=== PATIENT | female | born 1960 | race Caucasian/White ===

== ENCOUNTER → 2017-01-13 | Outpatient (CLI) | payer BC ==
--- NOTE | 2017-01-13 14:26 | Diagnostic Imaging Report ---
Transabdominal and transvaginal pelvic ultrasound. INDICATION: History of pelvic pain. The patient had the uterus and one of the ovaries removed in the past. FINDINGS: The urinary bladder appears unremarkable. The vaginal cuff region appears unremarkable. Bowel loops are seen in the pelvis which could obscure the remaining ovary which is potentially atrophic at the patient's age. No definite adnexal masses seen. IMPRESSION: No definite abnormality. Dictated by: Dictated on workstation # [id number]
== END ==
LOC: RAD 10:07
PROVIDERS: ATTEND Nurse Practitioner
DX: R10.2 Pelvic and perineal pain (principal); Z90.710 Acquired absence of both cervix and uterus; Z90.721 Acquired absence of ovaries, unilateral
CPT/HCPCS: 76830; 76856; 77067

== ENCOUNTER → 2018-10-05 | Outpatient (CLI) | payer BC ==
--- NOTE | 2018-10-06 12:25 | Diagnostic Imaging Report ---
INDICATION: Screening. EXAMINATION: Digital mammogram bilateral screening with 3-D tomosynthesis. The current study was also evaluated with a Computer Aided Detection (CAD) system. This study was compared to the prior exams of 01/13/2017 and 04/02/2013. At this time, there are no current complaints. FINDINGS: The fibroglandular tissue in both breasts is heterogeneously dense. This does limit the sensitivity of this exam. Overall, there does not appear to have been any significant change when compared to the prior study. No primary or secondary sign of malignancy is noted. IMPRESSION: There is no radiographic evidence for malignancy. ACR BI-RADS Category 1: Negative. Result letter will be mailed to the patient. Note: At least 10% of breast cancer is not imaged by mammography. Dictated by: Dictated on workstation # [id number]
== END ==
LOC: RAD 10:51
PROVIDERS: ATTEND Nurse Practitioner
DX: Z12.31 Encounter for screening mammogram for malignant neoplasm of breast (principal)
CPT/HCPCS: 77067

== ENCOUNTER 2019-07-27 09:43 | Outpatient (RCR) | payer BC | END 2019-10-25 | disposition home or self-care (01) | LOC: CARD 09:43 | PROVIDERS: ATTEND Family Medicine | DX: I49.9 Cardiac arrhythmia, unspecified (principal) | CPT/HCPCS: 93225; 93226 ==

== ENCOUNTER → 2019-11-24 | Outpatient (CLI) | payer BC ==
--- NOTE | 2019-11-24 09:56 | Diagnostic Imaging Report ---
INDICATION: Left breast lump. COMPARISON: Correlation is made with the diagnostic mammogram from earlier this same day. TECHNIQUE/FINDINGS: Sonographic interrogation of the area of lump in the left breast was performed. This corresponds to the 2 o'clock location approximately 10 cm from the nipple. No sonographic abnormality is seen. No solid or cystic mass is detected. IMPRESSION: No sonographic abnormality is detected. Continued close clinical and self breast exams are recommended to confirm stability of the palpable abnormality. ACR BI-RADS Category 1: Negative. Dictated by: Dictated on workstation # [id number]
--- NOTE | 2019-11-24 10:32 | Diagnostic Imaging Report ---
INDICATION: Left breast lump. COMPARISON: 10/05/2018 and 01/13/2017. TECHNIQUE: 2D and 3D bilateral diagnostic mammography was performed with CAD. FINDINGS: Scattered fibroglandular densities are identified bilaterally. A BB marker was placed at the area of palpable abnormality in the upper outer left breast. No mass or malignant appearing microcalcifications are seen. The axillae are unremarkable. IMPRESSION: No mammographic features suspicious for malignancy are identified. Even so, sonographic interrogation of the area of palpable abnormality in the upper-outer left breast is recommended and will be performed today. ACR BI-RADS Category 0: Incomplete. (Needs additional imaging evaluation). Result letter will be mailed to the patient. Note: At least 10% of breast cancer is not imaged by mammography. Dictated by: Dictated on workstation # [id number]
== END ==
LOC: RAD 08:55
PROVIDERS: ATTEND Surgery
DX: N63.21 Unspecified lump in the left breast, upper outer quadrant (principal)
CPT/HCPCS: 76642; 77062; 77066

== ENCOUNTER 2020-09-08 05:33 | Outpatient (CLI) | payer BC ==
[~2020-09-08] VITALS: Ht 162.6 cm; Wt 56.8 kg
[2020-09-08] MEDS ORDERED: MULT-1021 PO (13:11)
[2020-09-08] MEDS ORDERED: ESTR10TA9 VG (13:11)
[2020-09-08] MEDS ORDERED: LEVO50CA4 PO (13:11)
== END 2020-09-08 14:52 | disposition home or self-care (01) ==
LOC: PREOP 05:33 → EDSTATUS 10:00 → PREOP 14:52
PROVIDERS: ATTEND Internal Medicine
DX: Z01.818 Encounter for other preprocedural examination (principal)

== ENCOUNTER → 2020-09-15 | Day surgery (SDC) | payer BC ==
--- NOTE | 2020-09-01 18:01 | HISTORY AND PHYSICAL ---
DATE OF SERVICE: COLONOSCOPY HISTORY AND PHYSICAL HISTORY OF PRESENT ILLNESS: The patient is a 60-year-old white female referred by Dr. Magana for screening colonoscopy. She reports one other colonoscopy a little over 10 years ago that was unremarkable per her report. She is not aware of any family history for colon cancer. She denies any abdominal pain, change in bowel habits, bright red blood per rectum or melena. She also denies change in weight. She reports her energy level has been good. PAST MEDICAL HISTORY: Significant for frequent UTIs with reported interstitial cystitis, she tends to take cefuroxime for as needed. 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 She started this during COVID infection for symptomatic day was 06/30/2020. She reports after two and half weeks she was back to baseline with no complications reported. She is continued on baby aspirin daily. PAST SURGICAL HISTORY: She had total abdominal hysterectomy and bilateral salpingo-oophorectomy for symptomatic fibroids in the past and distant past history of tonsillectomy and adenoidectomy. FAMILY HISTORY: Mother of a stroke and had diabetes at the age of 79. Father is still living at the age of 90 with history of coronary artery disease. 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 REVIEW OF SYSTEMS: CONSTITUTIONAL: The patient denies night sweats, chills, fever, or change in weight. PULMONARY: She denies cough, shortness of breath or dyspnea on exertion. CARDIOVASCULAR: She denies chest pain, orthopnea, PND, pedal edema, syncope or presyncope. GASTROINTESTINAL: As noted in the HPI. PHYSICAL EXAMINATION: GENERAL: Reveals a pleasant white female, normal weight, in no acute distress. VITAL SIGNS: Blood pressure 110/60. CHEST: Clear. CARDIOVASCULAR: Revealed a regular rate and rhythm without S3 or S4. ABDOMEN: Soft, supple without mass, organomegaly or tenderness. EXTREMITIES: Reveal no cyanosis, clubbing or edema. CARDIOVASCULAR: The patient set up for screening colonoscopy as I recall on the 09/15/2020. Prep instructions with the Suprep kit were given and questions were answered. I thank you for the referral of this pleasant lady. Job ID: [id number] DocumentID: [id number] Dictated Date: 09/01/2020 17:30:17 Research Scholar Date: 09/01/2020 18:00:58 Dictated By: ARIN CHRISTOPHER MD
[2020-09-15] VITALS (7 sets, daily range): BP systolic 101–122; BP diastolic 53–88
[~2020-09-15] VITALS: Ht 162.6 cm; Wt 56.8 kg
[~2020-09-15] MED LIST: ESTR10TA9 VG; LACTATED RINGERS 1,000 ML IV ONE; LACTATED RINGERS 1,000 ML IV STA; LEVO50CA4 PO; LIDOCAINE JELLY 2% 6 ML SYRINGE MM PRN; MIDAZOLAM 2 MG/2 ML (VERSED) VIAL ONE; MULT-1021 PO; ONDANSETRON 4 MG/2 ML (SDV) Z0FRAN ONE; PROPOFOL INJECTION 50 ML IV ONE
--- NOTE | 2020-09-15 08:41 | Pre-Op Note & Conscious Sedat ---
Pre-Operative Progress Note H&P Reviewed The H&P was reviewed, patient examined and no changes noted. Date H&P Reviewed: Sep 15, 2020 Time H&P Reviewed: 08:41 Conscious Sedation Pre-Proced ASA Score 2 For ASA 3 and 4: Consider anesthesia and medical clearance. Also, for patients with a history of failed moderate sedation consider anesthesia. Airway Lungs Heart ASA score ASA 1: a normal healthy patient ASA 2: a patient with a mild systemic disease (mid diabetes, controlled hypertension, obesity ASA 3: a patient with a severe systemic disease that limits activity (angina, COPD, prior Myocardial infarction) ASA 4: a patient with an incapacitating disease that is a constant threat to life (CHF, renal failure) ASA 5: a moribund patient not expected to survive 24 hrs. (ruptured aneurysm) ASA 6: a declared brain- patient whose organs are being harvested. For emergent operations, add the letter E after the classification Mallampati Classification Grade 2 Sedation Plan Analgesia, Amnesia, Plan communicated to team members, Discussed options with patient/fam, Discussed risks with patient/fam The patient is an appropriate candidate to undergo the planned procedure, sedation, and anesthesia. The patient immediately re-assessed prior to indication. ARIN CHRISTOPHER MD Sep 15, 2020 08:41
--- NOTE | 2020-09-15 12:24 | Anesthesia-General Post-Op ---
MAC Patient Condition Mental Status/LOC: Same as Preop Cardiovascular: Satisfactory Nausea/Vomiting: Absent Respiratory: Satisfactory Pain: Controlled Complications: Absent Post Op Complications Complications None Follow Up Care/Instructions Patient Instructions None needed. Anesthesiology Discharge Order Discharge Order Patient is doing well, no complaints, stable vital signs, no apparent adverse anesthesia problems. No complications reported per nursing. YFN FIGUEROA CRNA Sep 15, 2020 12:24
--- NOTE | 2020-09-15 18:53 | OPERATIVE REPORT ---
DATE OF SERVICE: 09/15/2020 COLONOSCOPY SUMMARY INDICATION FOR THE PROCEDURE: Screening colonoscopy. DESCRIPTION OF PROCEDURE: The patient was placed in the left lateral decubitus position. Prior to undergoing colonoscopy, digital rectal evaluation was performed. Anal sphincter tone was normal and the perianal reflexes intact. The colonoscope was then inserted into the rectum and under direct visualization advanced to cecum. Cecum was identified by identification of the ileocecal valve and cecal strap. Photographic documentation was obtained. Careful inspection was made as colonoscope withdrawn. Quality of prep was good. FINDINGS: There was no evidence for internal or external hemorrhoids and the rectum, sigmoid colon, descending colon, transverse colon, ascending colon and cecum were unremarkable with no evidence for neoplasia, diverticular disease or inflammatory change. ASSESSMENT: Normal colonoscopy to the cecum. The patient is not aware of any family history for colon cancer, we would advocate consideration for repeat screening colonoscopy in 10 years. I thank you for the referral of this pleasant lady. Job ID: [id number] DocumentID: [id number] Dictated Date: 09/15/2020 12:16:40 Hide Puller Date: 09/15/2020 18:52:38 Dictated By: ARIN CHRISTOPHER MD
== END ==
LOC: ENDO 07:51
PROVIDERS: ATTEND Internal Medicine
DX: Z12.11 Encounter for screening for malignant neoplasm of colon (principal); N39.0 Urinary tract infection, site not specified; E06.3 Autoimmune thyroiditis; Z88.2 Allergy status to sulfonamides; Z79.890 Hormone replacement therapy; Z79.82 Long term (current) use of aspirin; Z90.710 Acquired absence of both cervix and uterus; Z90.722 Acquired absence of ovaries, bilateral; Z90.89 Acquired absence of other organs; Z98.890 Other specified postprocedural states; Z83.3 Family history of diabetes mellitus; Z82.3 Family history of stroke; Z82.49 Family history of ischemic heart disease and other diseases of the circulatory system

== ENCOUNTER → 2021-02-07 | Outpatient (CLI) | payer BC ==
[~2021-02-07] MED LIST changes: -LACTATED RINGERS 1,000 ML IV ONE; -LACTATED RINGERS 1,000 ML IV STA; -LIDOCAINE JELLY 2% 6 ML SYRINGE MM PRN; -MIDAZOLAM 2 MG/2 ML (VERSED) VIAL ONE; -ONDANSETRON 4 MG/2 ML (SDV) Z0FRAN ONE; -PROPOFOL INJECTION 50 ML IV ONE
--- NOTE | 2021-02-07 10:45 | Diagnostic Imaging Report ---
INDICATION: Left upper quadrant pain and nausea. TIME OF EXAM: 10:06 AM. FINDINGS: No free air is identified. The bowel gas pattern is nonobstructed. No pathologic calcifications are seen. IMPRESSION: No acute abnormality is detected. Dictated by: Dictated on workstation # [id number]
== END ==
LOC: RAD 09:30
PROVIDERS: ATTEND Family Medicine
DX: R10.12 Left upper quadrant pain (principal); R11.0 Nausea; R19.7 Diarrhea, unspecified; K59.00 Constipation, unspecified
CPT/HCPCS: 74019

== ENCOUNTER → 2021-06-02 | Outpatient (CLI) | payer BC ==
[2021-06-02 11:37] LABS: BASOPHILS % (AUTO) 1 % (0-10); EOSINOPHILS # (AUTO) 0.1 10^3/uL (0.0-0.3); EOSINOPHILS % (AUTO) 2 % (0-10); HEMATOCRIT 41 % (35-52); LYMPHOCYTES # (AUTO) 1.7 10^3/uL (1.0-4.0); LYMPHOCYTES % (AUTO) 20 % (12-44); MEAN CORPUSCULAR HEMOGLOBIN 32 pg (25-34); MEAN CORPUSCULAR HGB CONC 34 g/dL (32-36); MEAN CORPUSCULAR VOLUME 94 fL (80-99); MONOCYTES # (AUTO) 0.6 10^3/uL (0.0-1.0); MONOCYTES % (AUTO) 7 % (0-12); NEUTROPHILS # (AUTO) 5.8 10^3/uL (1.8-7.8); NEUTROPHILS % (AUTO) 70 % (42-75); PLATELET COUNT 287 10^3/uL (130-400); WHITE BLOOD COUNT 8.3 10^3/uL (4.3-11.0)
[2021-06-02 12:03] LABS: ALBUMIN 4.1 GM/DL (3.2-4.5); BILIRUBIN,TOTAL 0.7 MG/DL (0.1-1.0); CALCIUM 9.3 MG/DL (8.5-10.1); CREATININE SERUM 0.74 MG/DL (0.60-1.30); TOTAL PROTEIN 6.8 GM/DL (6.4-8.2)
== END ==
LOC: RAD 11:20
PROVIDERS: ATTEND Physician Assistant
DX: E03.8 Other specified hypothyroidism (principal); R10.11 Right upper quadrant pain
CPT/HCPCS: 36415; 80053; 82150; 83690; 85025

== ENCOUNTER → 2021-06-20 | Outpatient (CLI) | payer BC ==
--- NOTE | 2021-06-20 08:40 | Diagnostic Imaging Report ---
EXAMINATION: US Abdomen limited. TECHNIQUE: Multiple Real-time grayscale images were obtained over the right upper quadrant in various projections. HISTORY: RUQ pain. COMPARISON: 05/16/2014. FINDINGS: Pancreas: The visualized portions of the pancreas are normal. Liver: The liver is normal in echogenicity and contour. No focal lesions are seen. The portal vein is patent with hepatopetal flow. Gallbladder and biliary tree: Gallbladder is normal without wall thickening, pericholecystic fluid, or sonographic Patton sign. There is no biliary ductal dilation. The common duct measures 0.2 cm. Right kidney: The right kidney is normal without hydronephrosis. Aorta and IVC: The visualized aorta and inferior vena cava are normal. Fluid: No ascites is seen. IMPRESSION: Unremarkable right upper quadrant ultrasound. Dictated by: Dictated on workstation # [id number]
== END ==
LOC: RAD 07:15
PROVIDERS: ATTEND Physician Assistant
DX: R10.11 Right upper quadrant pain (principal)
CPT/HCPCS: 76705

== ENCOUNTER → 2021-06-20 | Outpatient (CLI) | payer BC ==
--- NOTE | 2021-06-20 11:18 | Diagnostic Imaging Report ---
INDICATION: Routine screening. COMPARISON: 11/24/2019 and 10/05/2018. TECHNIQUE: 2D and 3D bilateral screening mammography was performed with CAD. FINDINGS: Both breasts are heterogeneously dense, limiting the sensitivity of mammography. No mass or malignant-appearing microcalcifications are seen. The axillae are unremarkable. IMPRESSION: No mammographic features suspicious for malignancy are identified. ACR BI-RADS Category 1: Negative. Result letter will be mailed to the patient. Note: At least 10% of breast cancer is not imaged by mammography. Dictated by: Dictated on workstation # [id number]
== END ==
LOC: RAD 09:03
PROVIDERS: ATTEND Surgery
DX: Z12.31 Encounter for screening mammogram for malignant neoplasm of breast (principal)
CPT/HCPCS: 77063; 77067

== ENCOUNTER → 2021-09-19 | Outpatient (CLI) | payer BC ==
--- NOTE | 2021-09-19 10:26 | Diagnostic Imaging Report ---
INDICATION: Right-sided pain EXAMINATION: Two-view chest 09/19/2021 FINDINGS: The cardiomediastinal silhouette is unremarkable. The pulmonary vasculature is within normal limits. The lungs and pleural spaces are clear. IMPRESSION: No evidence of an acute cardiopulmonary process. Dictated by: Dictated on workstation # [id number]
== END ==
LOC: RAD 09:40
PROVIDERS: ATTEND Family Medicine
DX: R07.9 Chest pain, unspecified (principal)
CPT/HCPCS: 71046

== ENCOUNTER → 2022-12-06 | Outpatient (CLI) | payer BC ==
--- NOTE | 2022-12-06 12:36 | Diagnostic Imaging Report ---
INDICATION: Routine screening. COMPARISON is made with prior mammograms from 06/20/2021 and 11/24/2019. 2-D and 3-D bilateral screening mammography was performed with CAD. Both breasts are heterogeneously dense, limiting the sensitivity of mammography. The parenchymal pattern is stable. No mass or malignant-appearing microcalcifications are identified. Axillae are unremarkable. IMPRESSION: BI-RADS Category 1 No mammographic features suspicious for malignancy are identified. ACR BI-RADS Category 1: Negative. Result letter will be mailed to the patient. Note: At least 10% of breast cancer is not imaged by mammography. Dictated by: Dictated on workstation # [id number]
== END ==
LOC: RAD 08:33
PROVIDERS: ATTEND Surgery
DX: Z12.31 Encounter for screening mammogram for malignant neoplasm of breast (principal)
CPT/HCPCS: 77063; 77067